=== PATIENT | male | born 1990 | race Two or more races ===

== ENCOUNTER 2020-10-27 20:06 | Emergency (ER) | payer MEDICAID ==
[~2020-10-27] VITALS: Ht 180.3 cm; Wt 65.8 kg
[2020-10-27] MEDS ORDERED: KETOROLAC TROMETH 60MG/2ML VIAL IM ONE (22:45)
[2020-10-27 22:48] VITALS: BP 114/65
== END 2020-10-27 22:56 | disposition home or self-care (01) ==
LOC: ER 20:13
DX: S46.912A Strain of unspecified muscle, fascia and tendon at shoulder and upper arm level, left arm, initial encounter (principal); F15.10 Other stimulant abuse, uncomplicated; Z88.0 Allergy status to penicillin; X58.XXXA Exposure to other specified factors, initial encounter; Y93.89 Activity, other specified; Y92.89 Other specified places as the place of occurrence of the external cause; Y99.8 Other external cause status
CPT/HCPCS: 73030; 96372; 99283; J1885